=== PATIENT | male | born 1980 | race Caucasian/White ===

== ENCOUNTER 2020-06-20 11:35 | Day surgery (SDC) | payer OTHER, SELFPAY ==
[2020-06-20] VITALS (9 sets, daily range): BP systolic 119–145; BP diastolic 62–83; PULSE 61–89; RESP 12–17; TEMP 36.1–36.9; O2SAT 93–97; BMI 34.5
[2020-06-20] MEDS: LACTATED RINGERS 1,000 ML 100 ML IV ×2 (12:51→16:19)
--- NOTE | 2020-06-20 13:36 | PM.PREOP ---
Pre-operative Note COVID-19 COVID-19 status: Negative Result date/Date tested (Pos, Neg/Pending): 06/17/20 Interval Note History & Physical reviewed/Exam performed by Physician: Yes Changes to H&P: No
[2020-06-20] MEDS: CEFAZOLIN 2 GM/100 ML FROZ.PIGGY IV (13:58)
--- NOTE | 2020-06-20 14:29 | SUR.OPER ---
Supine on padded OR bed, head on pillow, arms secured on padded arm boards at <90 degrees abduction, legs uncrossed, safety belt at thigh, tape over blanket over lower legs.
[2020-06-20] MEDS: BUPIVACAINE 0.5% (PF) VIAL 30 ML INJ (14:34)
--- NOTE | 2020-06-20 17:24 | SUR.PHASEI ---
received to PACU after general anesthesia. Airway patent, self maintained. Report from Dr Cuellar and SANDRA Cerda.
[2020-06-20] MEDS: OXYCODONE/ACETAMINOPHEN 5/325 TABLET 1 TAB PO ×2 (17:33→18:05)
--- NOTE | 2020-06-20 17:41 | SUR.PHASEI ---
Eye glasses returned to pt at 1725.
--- NOTE | 2020-06-20 17:46 | PM.OP.1 ---
Operative Date/Time/Diagnoses Date of procedure: 06/20/20 Time of procedure: 17:09 Pre-op diagnosis: Left inguinal hernia incarcerated Post-op diagnosis: other (Left inguinal hernia sliding appeared to contain the bladder and a wall of the colon.) Procedure & Clinicians Procedure: Repair with an ileopubic tract repair with modification and an onlay of mesh. Same procedure as scheduled: Yes Indications: Symptomatic large left inguinal hernia Surgeon: Darien Young [facility] Liaison: Eric Ramirez Click Yes if Unassisted: Yes Anesthesia Type: General Operative Notes Findings: Huge defect through the floor. Indirect sac was formed mostly by the wall of large intestine and adjacent there was a mass coming up through the floor suggestive that the patient had bladder within this hernia as well. Closure Type: primary Specimen(s): none sent Prosthetic devices, grafts, tissues, transplants, or devices: 3 x 6 in piece of permanent mesh Estimated Blood Loss (mL): 30 Blood products transfused: none Procedure in detail: The patient was placed supine on the operating room table and underwent general LMA anesthesia. He was prepped and draped in the usual fashion. A transverse incision was made overlying the internal ring and carried down to the level of the external oblique. The external oblique was opened parallel with its fibers through the external ring. The cord structures were unable to be elevated initially due to the large size of this hernia. The cremaster was opened proximally and search made for an indirect sac. I carefully opened through and open into a indirect hernia sac. It was apparent however that colon was within it and as I tried to reduce it it also became apparent that the colon actually formed most of the wall of this hernia sac posteriorly and medially. With great difficulty ice identified the cord structures and them off of this large hernia I then delivered the hernia and it was the size of a small cantaloupe coming up through the floor and completely obliterating it. There was a mass adjacent to the colon and I suspected given the location of the origin of this hernia that this was bladder. I.e. did not see any way to separate this hernia sac from colon or the adjacent mass without possibly causing significant injury to those structures. Therefore I closed the opening I had created in this indirect sac with a running 2 0 Vicryl. I then inverted the entire hernia and contents into the floor and reduced it. The patient had to be paralyzed at this point in sutures were placed from the posterior lamella the anterior rectus sheath to the inguinal ligament edge and the edge of the ileopubic tract laterally. These were tied in a relaxing incision created to reduce the tension. This created a new internal ring that was snug around the cord structures. . The floor was examined and was found to be adequate once the repair had been undertaken.. A patch was placed across the floor and tacked at the pubic tubercle, the posterior lamella of the anterior rectus sheath, the ilioinguinal ligament, and superior lateral to the cord. An opening was made as necessary to prevent tight constriction of the cord. Sutures of 0 Tycron were used to secure the mesh. The external oblique was closed with a running 3 0 Polysorb. The subcu was closed with interrupted 3 0 Polysorb. The skin was closed with a running 4 0 Polysorb subcuticular stitch and Steri-Strips. Dressing was applied, the patient was awakened, and the patient was taken to the recovery area in good condition. Of note, neurosurgical nurse practitioner another surgeon was necessary due to the very complex nature of this hernia and to assist in proper exposure during the repair. The operation required approximately 3 times a normal amount of time that it takes to repair and inguinal hernia. Complications: none Post-operative Condition: stable Disposition: PACU
== END 2020-06-20 18:27 | disposition home or self-care (01) ==
PROVIDERS: Referring Provider Specialist; Visit Provider Specialist
PROC: (CPT 49507; principal; 2020-06-20 13:15)
DX: K40.30 Unilateral inguinal hernia, with obstruction, without gangrene, not specified as recurrent (principal)
CPT/HCPCS: 49507; C1781; J0690; J1100; J2250; J2405; J2704; J3010

== ENCOUNTER → 2022-11-01 10:46 | Outpatient (CLI) | payer SELFPAY ==
--- NOTE | 2022-11-01 | DI.US.S_ITS ---
PROCEDURE: US ABDOMEN LIMITED INDICATIONS: LEFT INGUINAL PRESSURE AT PRIOR HERNIA REPAIR WITH MESH TECHNIQUE: Real-time focused scanning was performed of the inguinal region, with image documentation. COMPARISON: None. FINDINGS: No significant abnormality is seen in the left inguinal region at the area of clinical concern. Postsurgical changes are seen from prior hernia repair. No recurrent inguinal hernia is seen sonographically. IMPRESSION: No recurrent inguinal hernia is seen sonographically. Approved by: Ramo Donovan M.D. on 11/01/2022 at 14:49
== END ==
PROVIDERS: PCP Physician Assistant Medical; Referring Provider Physician Assistant Medical; Visit Provider Physician Assistant Medical
DX: K40.91 Unilateral inguinal hernia, without obstruction or gangrene, recurrent (principal)
CPT/HCPCS: 76705